=== PATIENT | male | born 1980 | race Caucasian/White ===

== ENCOUNTER 2019-01-17 18:01 | Inpatient (IN) | payer MEDICAID ==
[2019-01-17] MEDS ORDERED: ASPIRIN 81 MG CHEWABLE TABLET PO ONE (18:48)
--- NOTE | 2019-01-17 18:57 | Emergency Department Record ---
History of Present Illness - General Chief Complaint: Chest Pain Stated Complaint: edilma,chest pain Time Seen by Provider: 01/17/19 18:42 Source: Patient Mode of Arrival: Ambulatory Limitations: No limitations - History of Present Illness Initial Comments: pt has been sob x 2wks and has had sharp cp x 3 days. he smokes 3pks a day. he has a nonprod cough. he feels like he is having a problem breathing MD Complaint: Chest pain Onset/Timin -: Week(s) Pain Location: Substernal Pain Radiation: Back Quality: Aching, Sharp Consistency: Constant Improves With: Nothing Worsens With: Inspiration Anginal Symptoms: Dyspnea Other Symptoms: Cough - Related Data Home Medications Medication Instructions Recorded Confirmed Last Taken Buspirone HCl [Buspar] 20 mg PO DAILY 01/17/19 01/17/19 01/17/19 Lamotrigine [Lamictal] 200 mg PO DAILY 01/17/19 01/17/19 01/17/19 Allergies Allergy/AdvReac Type Severity Reaction Status Date / Time amoxicillin Allergy hives Unverified 02/25/18 17:11 amoxicillin trihydrate Allergy hives Unverified 02/25/18 17:11 [From Augmentin] cephalexin Allergy hives Unverified 02/25/18 17:11 clarithromycin [From Biaxin] Allergy Unverified 02/25/18 17:11 potassium clavulanate Allergy hives Unverified 02/25/18 17:11 [From Augmentin] sulfamethoxazole Allergy hives Unverified 02/25/18 17:11 [From Bactrim] trimethoprim [From Bactrim] Allergy hives Unverified 02/25/18 17:11 Travel Screening - Travel/Exposure Within Last 30 Days Have you traveled within the last 30 days?: No - Travel/Exposure Within Last Year Have you traveled outside the [place] in the last year?: No - Additonal Travel Details Have you been exposed to anyone with a communicable illness?: No Review of Systems Reviewed: No additional complaints except as noted below Constitutional: Reports: As per HPI. Denies: Chills, Fever, Malaise, Night sweats, Weakness, Weight change Eyes: Reports: As per HPI. Denies: Eye discharge, Eye pain, Photophobia, Vision change ENT: Reports: As per HPI. Denies: Congestion, Dental pain, Ear pain, Epistaxis, Hearing loss, Throat pain Respiratory: Reports: As per HPI, Cough. Denies: Dyspnea, Hemoptysis, Stridor, Wheezes Cardiovascular: Reports: As per HPI, Chest pain. Denies: Arrhythmia, Dyspnea on exertion, Edema, Murmurs, Orthopnea, Palpitations, Paroxysmal nocturnal dyspnea, Rheumatic Fever, Syncope Endocrine: Reports: As per HPI. Denies: Fatigue, Heat or cold intolerance, Polydipsia, Polyuria Gastrointestinal: Reports: As per HPI. Denies: Abdominal pain, Constipation, Diarrhea, Hematemesis, Hematochezia, Melena, Nausea, Vomiting Genitourinary: Reports: As per HPI. Denies: Dysuria, Frequency, Hematuria, Incontinence, Retention, Testicular pain, Testicular mass, Urgency Musculoskeletal: Reports: As per HPI. Denies: Arthralgia, Back pain, Gout, Joint swelling, Myalgia, Neck pain Skin: Reports: As per HPI. Denies: Bruising, Change in color, Change in hair/nails, Lesions, Pruritus, Rash Neurological: Reports: As per HPI. Denies: Abnormal gait, Confusion, Headache, Numbness, Paresthesias, Seizure, Tingling, Tremors, Vertigo, Weakness Psychiatric: Reports: As per HPI. Denies: Anxiety, Auditory hallucinations, Depression, Homicidal thoughts, Suicidal thoughts, Visual hallucinations Hematological/Lymphatic: Reports: As per HPI. Denies: Anemia, Blood Clots, Easy bleeding, Easy bruising, Swollen glands Past Medical History - SOCIAL HISTORY Smoking Status: Current every day smoker Alcohol Use: Heavy Drug Use: None - RESPIRATORY Hx Respiratory Disorders: Yes Hx Asthma: Yes - CARDIOVASCULAR Hx Cardio Disorders: No - NEURO Hx Neuro Disorders: No - GI Hx GI Disorders: Yes Hx Reflux: Yes - Hx Bladder Problem: Yes (needs to see MD bladder doesn't empty X 1 yr) - ENDOCRINE Hx Endocrine Disorders: No - MUSCULOSKELETAL Hx Musculoskeletal Disorders: No - PSYCH Hx Psych Problems: Yes Hx Depression: Yes - HEMATOLOGY/ONCOLOGY Hx Hematology/Oncology Disorders: No Family Medical History Any Significant Family History?: No Hx Cancer: Mother, Grandparents *Cancer Comment: MOM breast, MGM bladder Hx Diabetes: Mother Hx Heart Disease: Grandparents Physical Exam - General General Appearance: Alert, Oriented x3, Cooperative, Mild distress - Head Head exam: Normal inspection - Eye Eye exam: Normal appearance, PERRL, EOMI Pupils: Normal accommodation - ENT ENT exam: Normal exam, Mucous membranes moist, Normal external ear exam, Normal orophraynx Ear exam: Normal external inspection. negative: External canal tenderness Nasal Exam: Normal inspection. negative: Discharge, Sinus tenderness Mouth exam: Normal external inspection, Tongue normal Teeth exam: Normal inspection. negative: Dental caries Throat exam: Normal inspection. negative: Tonsillar erythema, Tonsillar exudate - Neck Neck exam: Normal inspection, Full ROM. negative: Tenderness - Respiratory Respiratory exam: Normal lung sounds bilaterally, Respiratory distress, Other (tachypnea) - Cardiovascular Cardiovascular Exam: Regular rate, Normal rhythm, Normal heart sounds - GI/Abdominal GI/Abdominal exam: Soft, Normal bowel sounds. negative: Tenderness - Rectal Rectal exam: Deferred - exam: Deferred - Extremities Extremities exam: Normal inspection, Full ROM, Normal capillary refill. negative: Tenderness - Back Back exam: Reports: Normal inspection, Full ROM. Denies: Muscle spasm, Rash noted, Tenderness - Neurological Neurological exam: Alert, CN II-XII intact, Normal gait, Oriented X3 - Psychiatric Psychiatric exam: Normal affect, Normal mood - Skin Skin exam: Dry, Intact, Normal color, Warm Course Vital Signs 01/17/19 01/17/19 18:03 18:18 Temperature 98.2 F Pulse Rate 96 H Respiratory 24 Rate Blood Pressure 180/111 Blood Pressure 157/104 [Right Arm] Pulse Ox 100 - Reevaluation(s) Reevaluation #1: 01/17/19 20:48 pt denies working out . he says he does a lot of lifting at work. etiology of elev cpk is unclear and also of low potassium Medical Decision Making - Lab Data Result diagrams: 01/17/19 18:10 01/17/19 18:10 Disposition Disposition: Admit Clinical Impression: Hypokalemia, Elevated CPK, Alcohol abuse Chest pain Qualifiers: Chest pain type: unspecified Qualified Code(s): R07.9 - Chest pain, unspecified Disposition: Still a Patient at [facility] Decision to Admit: Admit from ER Decision to Admit Date: 01/17/19 Decision to Admit Time: 20:50 Time Discussed w/Accepting Physician: 20:50 Forms: Patient Portal Access Quality - Quality Measures Quality Measures: N/A - Blood Pressure Screening Does Patient Have Any of the Following: No Blood Pressure Classification: Hypertensive Reading Systolic Measurement: 180 Diastolic Measurement: 111 Screening for High Blood Pressure: < First Hypertensive BP, F/U Documented > [[id number]] First Hypertensive Follow-up Interventions: Follow-up with rescreen GT 1 day and LT 4 weeks.
[2019-01-17] MEDS: NITROGLYCERIN 0.4MG SL TABLET #25 BTL SL PRN ×3 (19:06→19:18)
[2019-01-17 19:09] LABS: ABSOLUTE NEUTROPHIL COUNT 6.16; BASO % 0.2 % (0-6); EOS % 0.2 % (0-6); GRAN % 72.2 % (47-80); HEMOGLOBIN 15.9 gm/dl (14.0-18.0); LYMPH % 20.4 % (16-45); MEAN CELL VOLUME 96.2 fl (81-97); MEAN CORPUSCULAR HGB CONC 35.3 g/dl (32-36); MEAN PLATELET VOLUME 9.8 fl (7.4-10.4); PLATELET COUNT 315 K/uL (130-400); RED BLOOD COUNT 4.68 M/uL (4.40-5.70); RED CELL DISTRIBUTION WIDTH 12.2 % (11.5-14.5); WHITE BLOOD COUNT W/O DIFF 8.5 K/uL (4.2-12.2)
[2019-01-17 19:20] LABS: BLOOD UREA NITROGEN 19 mg/dL (6-20); CREATININE 0.9 mg/dL (0.7-1.2); EST GLOMERULAR FILTRATION RATE > 60 mL/min
[2019-01-17 19:21] LABS: TOTAL PROTEIN 7.4 g/dL (6.6-8.7)
[2019-01-17 19:23] LABS: GLUCOSE,RANDOM 96 mg/dL (74-109)
[2019-01-17 19:25] LABS: ALT/SGPT 24 U/L (<41); AST/SGOT 39 U/L (10.0-50.0)
[2019-01-17] MEDS ORDERED: POTASSIUM CHLORIDE 20 MEQ TABLET PO ONE (19:25)
[2019-01-17] MEDS ORDERED: SOD CHLOR 0.9% WITH KCL 40MEQ 40 MEQ/1,000 ML IV.SOLN IV ONE (19:25)
[2019-01-17 19:26] LABS: ALB/GLOB RATIO 1.7 (1.1-1.8); ALBUMIN 4.7 g/dL (4.0-5.0); ALKALINE PHOSPHATASE 72 U/L (40-129); CREATINE PHOSPHOKINASE 939 U/L (39-308)
[2019-01-17 19:28] LABS: CKMB 6.2 ng/mL (<6.73)
[2019-01-17 19:31] LABS: CKMB RELATIVE INDEX 0.66 % (0-4)
[2019-01-17] MEDS ORDERED: LORAZEPAM 2 MG/ML VIAL IV ONE ×2 (20:39→21:24)
[2019-01-17] MEDS ORDERED: KETOROLAC 30 MG/ML VIAL IVP ONE (20:39)
[2019-01-17 21:01] LABS: URINE APPEARANCE CLEAR; URINE BILIRUBIN NEGATIVE (NEGATIVE); URINE BLOOD NEGATIVE (NEGATIVE); URINE COLOR YELLOW; URINE GLUCOSE (UA) NEGATIVE (NEGATIVE); URINE KETONE TRACE (NEGATIVE); URINE LEUKOCYTE ESTERASE NEGATIVE (NEGATIVE); URINE NITRITE NEGATIVE (NEGATIVE); URINE PROTEIN NEGATIVE (NEGATIVE); URINE UROBILINOGEN 0.2 E.U./dL (0.20 - 1.00)
[2019-01-17] MEDS ORDERED: HYDROCODONE/APAP 5/325MG TABLET PO ONE (21:01)
[2019-01-17] MEDS ORDERED: HYDROCODONE/APAP 7.5/325MG TABLET PO ONE (21:06)
[2019-01-17] MEDS ORDERED: NITROGLYCERIN 0.4MG SL TABLET #25 BTL SL PRN (22:01)
[2019-01-17] MEDS ORDERED: PANTOPRAZOLE SODIUM 40 MG TABLET PO SCH (22:01)
[2019-01-17] MEDS ORDERED: IBUPROFEN 200 MG PO SCH (22:01)
[2019-01-17] MEDS: DICYCLOMINE HCL 10 MG CAPSULE PO SCH (22:30)
[2019-01-17] MEDS: NICOTINE 21 MG/24 HOUR PATCH TD SCH (22:31)
[2019-01-17] MEDS: CHLORDIAZEPOXIDE 25 MG CAPSULE PO SCH (22:31)
[2019-01-17] MEDS: HYDROCODONE/APAP 7.5/325MG TABLET PO SCH (22:58)
[2019-01-17] MEDS ORDERED: IBUPROFEN 200 MG TABLET PO SCH (23:00)
[2019-01-17] MEDS: IBUPROFEN 200 MG TABLET PO SCH (23:01)
[2019-01-18] MEDS: LORAZEPAM 2 MG/ML VIAL IV PRN ×5 (00:53→23:09)
[2019-01-18] MEDS: 0.9 % SODIUM CHLORIDE 1000ML 1,000 ML IV PRN ×2 (00:55→10:35)
[2019-01-18] MEDS: HYDROCODONE/APAP 7.5/325MG TABLET PO SCH (04:11)
[2019-01-18] MEDS: IBUPROFEN 200 MG TABLET PO SCH ×5 (04:13→23:08)
[2019-01-18 04:25] LABS: BLOOD UREA NITROGEN 17 mg/dL (6-20); CREATINE PHOSPHOKINASE 489 U/L (39-308); CREATININE 0.8 mg/dL (0.7-1.2); EST GLOMERULAR FILTRATION RATE > 60 mL/min; GLUCOSE,RANDOM 89 mg/dL (74-109)
[2019-01-18 04:27] LABS: CKMB 2.9 ng/mL (<6.73)
[2019-01-18] MEDS ORDERED: HYDROCODONE/APAP 7.5/325MG TABLET PO PRN (09:15)
[2019-01-18] MEDS ORDERED: ASPIRIN 325 MG TAB ENTERIC-COATED PO SCH (10:00)
[2019-01-18] MEDS: PANTOPRAZOLE SODIUM 40 MG TABLET PO SCH (10:09)
[2019-01-18] MEDS: SUCRALFATE 1 G/10 ML UD PO SCH ×4 (10:09→21:59)
[2019-01-18] MEDS: DICYCLOMINE HCL 10 MG CAPSULE PO SCH ×3 (10:09→21:59)
[2019-01-18] MEDS: ONDANSETRON 4 MG ODT TABLET SL SCH (10:09)
[2019-01-18] MEDS: BUSPIRONE 5 MG TABLET PO SCH ×3 (10:12→21:59)
[2019-01-18] MEDS: CHLORDIAZEPOXIDE 25 MG CAPSULE PO SCH ×3 (10:14→21:59)
[2019-01-18 11:39] LABS: LIPASE 25 U/L (13-60)
[2019-01-18 11:41] LABS: AMYLASE 32 U/L (28-100)
--- NOTE | 2019-01-18 12:05 | History & Physical ---
History of Present Illness - Date of Service Date of Service for History & Physical: 01/18/19 - History of Present Illness Admitting Diagnosis: hypokalemia, elev cpk, chest pain, alcohol History of Present Illness: 38 year-old male presenting to the emergency department with edilma for x 2wks and has had sharp sternal cp that radiates around to his back x 3 days. Pt reports having a nonproductive cough throughout the day, with sputum production in the am only. pt smokes 3pks/ day. Pt states that he has seen GI in the past for lower bilateral abd pain and had a negative EGD 1 year ago. Pt reports weight loss over the past year of 80 lbs with no change in diet aside from switching from drinking beer to liquor and not drinking pop. PMH includes asthma, GERD, Anxiety, Depression, recent bereavement of father, chronic neck pain, including reports of DJD and bulging disc in c2. Taking [place] for chronic pain. In the ED: Vitals were BP of 180/111, HR 96, SpO2 100, RR 24, Temp 98.2. Recheck BP was 157/104. D. dimer <0.19, K 2.8, mag 1.6, anion gap 17, CPK 939, Trop negative, BNP 102.4, amylase 32, lipase 25. Pt states he has not had any unusual physical activity to elevate CPK. UA unremarkable aside from trace ketones. Chest XRAY and EKG WNL. Pt was admitted for alcohol withdrawal, Chest pain, and hypokalemia. 01/18/19: Vitals unremarkable aside from BP being 151/97. K increased to 3.4, Anion gap decreased to 9.0, CPK decreased to 489 with hydration, Troponin remains negative. Pt still reports sharp sternal chest pain that radiated around and through his back, with no relief from norco. Due to physical exam findings and patient history of alcoholism and smoking history, will order abdominal ultrasound to rule out gall bladder disease and AAA. Continue librium and CIWA scale per protocol. PCP: Dr. Dawn Travel Screening - Travel/Exposure Within Last 30 Days Have you traveled within the last 30 days?: No - Travel/Exposure Within Last Year Have you traveled outside the [place] in the last year?: No - Additonal Travel Details Have you been exposed to anyone with a communicable illness?: No Review of Systems Constitutional: Reports: As per HPI. Denies: Chills, Fever, Malaise, Night sweats, Weakness, Weight change Eyes: Reports: As per HPI. Denies: Eye discharge, Eye pain, Photophobia, Vision change ENT: Reports: As per HPI. Denies: Congestion, Dental pain, Ear pain, Epistaxis, Hearing loss, Throat pain Respiratory: Reports: As per HPI, Cough. Denies: Dyspnea, Hemoptysis, Stridor, Wheezes Cardiovascular: Reports: As per HPI, Chest pain. Denies: Arrhythmia, Dyspnea on exertion, Edema, Murmurs, Orthopnea, Palpitations, Paroxysmal nocturnal dyspnea, Rheumatic Fever, Syncope Endocrine: Reports: As per HPI. Denies: Fatigue, Heat or cold intolerance, Polydipsia, Polyuria Gastrointestinal: Reports: As per HPI. Denies: Abdominal pain, Constipation, Diarrhea, Hematemesis, Hematochezia, Melena, Nausea, Vomiting Genitourinary: Reports: As per HPI. Denies: Dysuria, Frequency, Hematuria, Incontinence, Retention, Testicular pain, Testicular mass, Urgency Musculoskeletal: Reports: As per HPI. Denies: Arthralgia, Back pain, Gout, Joint swelling, Myalgia, Neck pain Skin: Reports: As per HPI. Denies: Bruising, Change in color, Change in hair/nails, Lesions, Pruritus, Rash Neurological: Reports: As per HPI. Denies: Abnormal gait, Confusion, Headache, Numbness, Paresthesias, Seizure, Tingling, Tremors, Vertigo, Weakness Psychiatric: Reports: As per HPI. Denies: Anxiety, Auditory hallucinations, Depression, Homicidal thoughts, Suicidal thoughts, Visual hallucinations Hematological/Lymphatic: Reports: As per HPI. Denies: Anemia, Blood Clots, Easy bleeding, Easy bruising, Swollen glands Past Medical History - SOCIAL HISTORY Smoking Status: Current every day smoker Alcohol Use: Heavy Alcohol Use Comment: 5th a day Drug Use: None - RESPIRATORY Hx Respiratory Disorders: Yes Hx Asthma: Yes - CARDIOVASCULAR Hx Cardio Disorders: No - NEURO Hx Neuro Disorders: No - GI Hx GI Disorders: Yes Hx Reflux: Yes - Hx Bladder Problem: Yes (needs to see MD bladder doesn't empty X 1 yr) - ENDOCRINE Hx Endocrine Disorders: No - MUSCULOSKELETAL Hx Musculoskeletal Disorders: No - PSYCH Hx Psych Problems: Yes Hx Depression: Yes - HEMATOLOGY/ONCOLOGY Hx Hematology/Oncology Disorders: No Family Medical History Any Significant Family History?: No Hx Cancer: Mother, Grandparents *Cancer Comment: MOM breast, MGM bladder Hx Diabetes: Mother Hx Heart Disease: Grandparents H&P Meds/Allergies - Allergies Allergies: Allergies Allergy/AdvReac Type Severity Reaction Status Date / Time amoxicillin Allergy hives Unverified 02/25/18 17:11 amoxicillin trihydrate Allergy hives Unverified 02/25/18 17:11 [From Augmentin] cephalexin Allergy hives Unverified 02/25/18 17:11 clarithromycin [From Biaxin] Allergy Unverified 02/25/18 17:11 potassium clavulanate Allergy hives Unverified 02/25/18 17:11 [From Augmentin] sulfamethoxazole Allergy hives Unverified 02/25/18 17:11 [From Bactrim] trimethoprim [From Bactrim] Allergy hives Unverified 02/25/18 17:11 - Home Medications Home Medications Medication Instructions Recorded Confirmed Last Taken Buspirone HCl [Buspar] 20 mg PO TID 01/17/19 01/18/19 01/17/19 Lamotrigine [Lamictal] 200 mg PO QHS 01/17/19 01/18/19 01/17/19 - Active Medications Active Medications: Current Medications Hydrocodone Bitart/Acetaminophen ([place] 7.5mg/325mg) 1 each PO Q6H PRN PRN Reason: PAIN - MOD TO SEVERE (5-10) Aspirin (Ecotrin (Ec)) 325 mg PO DAILY [facility] Last Admin: 01/18/19 10:09 Dose: 325 mg Documented by: Buspirone HCl (Buspar) 20 mg PO TID [facility] Last Admin: 01/18/19 10:12 Dose: 20 mg Documented by: Chlordiazepoxide HCl (Librium) 25 mg PO TID [facility] Last Admin: 01/18/19 10:14 Dose: 25 mg Documented by: Dicyclomine HCl (Bentyl) 20 mg PO TID [facility] Last Admin: 01/18/19 10:09 Dose: 20 mg Documented by: Sodium Chloride () 1,000 mls @ 200 mls/hr IV .Q5H PRN PRN Reason: LARGE VOLUME IV Last Admin: 01/18/19 10:35 Dose: 200 mls/hr Documented by: Ibuprofen (Motrin 200mg) 200 mg PO Q6H [facility] Last Admin: 01/18/19 04:13 Dose: 200 mg Documented by: Lamotrigine (Lamictal) 200 mg PO QHS [facility] Lorazepam (Ativan) 1 mg IV Q4HR PRN PRN Reason: ANXIETY Last Admin: 01/18/19 05:03 Dose: 1 mg Documented by: Nicotine (Nicotine 21mg) 1 patch TD Q24H [facility] Last Admin: 01/17/19 22:31 Dose: 1 patch Documented by: Nitroglycerin (Nitrostat 0.4mg) 0.4 mg SL Q5MIN PRN PRN Reason: CHEST PAIN Ondansetron HCl (Zofran Odt) 4 mg SL DAILY [facility] Last Admin: 01/18/19 10:09 Dose: 4 mg Documented by: Pantoprazole Sodium (Protonix) 40 mg PO DAILY [facility] Last Admin: 01/18/19 10:09 Dose: 40 mg Documented by: Sucralfate (Carafate) 1 g PO QID [facility] Last Admin: 01/18/19 10:09 Dose: 1 g Documented by: Physical Exam - Vital Signs Vital Signs: Vital Signs - Last 24 Hrs Temp Pulse Pulse Resp BP BP Pulse Ox 01/18/19 09:48 18 98 01/18/19 07:29 98.6 F 73 16 151/97 97 01/18/19 04:01 97.7 F 68 22 153/98 100 01/18/19 00:01 97.7 F 63 20 152/101 99 01/17/19 23:41 80 18 01/17/19 22:01 97.8 F 70 20 146/94 98 01/17/19 21:11 73 20 151/103 99 01/17/19 19:16 81 141/90 94 L 01/17/19 19:11 82 20 143/88 97 01/17/19 19:05 81 20 155/99 97 01/17/19 18:18 157/104 01/17/19 18:03 98.2 F 96 H 24 180/111 100 - General General Appearance: Alert, Oriented x3, Cooperative, Mild distress Limitations: No limitations - Head Head exam: Normal inspection - Eye Eye exam: Normal appearance, PERRL, EOMI Pupils: Normal accommodation - ENT ENT exam: Normal exam, Mucous membranes moist, Normal external ear exam, Normal orophraynx Ear exam: Normal external inspection. negative: External canal tenderness Nasal Exam: Normal inspection. negative: Discharge, Sinus tenderness Mouth exam: Normal external inspection, Tongue normal Teeth exam: Normal inspection. negative: Dental caries Throat exam: Normal inspection. negative: Tonsillar erythema, Tonsillar exudate - Neck Neck exam: Normal inspection, Full ROM. negative: Tenderness - Respiratory Respiratory exam: Decreased breath sounds (prior to coughing and deep breathing) - Cardiovascular Cardiovascular Exam: Regular rate, Normal rhythm, Normal heart sounds Peripheral Pulses: 2+: Radial (R), Radial (L) - GI/Abdominal GI/Abdominal exam: Soft, Normal bowel sounds, Other (upper and mid left quadrant referred heart sounds). negative: Tenderness - Rectal Rectal exam: Deferred - exam: Deferred - Extremities Extremities exam: Normal inspection, Full ROM, Normal capillary refill. negative: Tenderness - Back Back exam: Reports: Normal inspection, Full ROM. Denies: Muscle spasm, Rash noted, Tenderness - Neurological Neurological exam: Alert, CN II-XII intact, Normal gait, Oriented X3 - Psychiatric Psychiatric exam: Normal affect, Normal mood - Skin Skin exam: Dry, Intact, Normal color, Warm Results - Labs Result Diagrams: 01/17/19 18:10 01/18/19 03:58 Labs Last 24 Hours: Laboratory Results - last 24 hr 01/17/19 01/17/19 01/17/19 18:10 18:10 18:10 WBC 8.5 RBC 4.68 Hgb 15.9 Hct 45.0 MCV 96.2 MCH 34.0 H MCHC 35.3 RDW 12.2 Plt Count 315 MPV 9.8 Gran % 72.2 Lymphocytes % 20.4 Monocytes % 7.0 Eosinophils % 0.2 Basophils % 0.2 Absolute Neutrophils 6.16 D-Dimer < 0.19 Sodium 141 Potassium 2.8 L* Chloride 102 Carbon Dioxide 22.0 Anion Gap 17.0 H BUN 19 Creatinine 0.9 Estimated GFR > 60 Random Glucose 96 Calcium 10.1 H Magnesium Total Bilirubin 0.90 AST 39 ALT 24 Alkaline Phosphatase 72 Creatine Kinase 939 H CK-MB (CK-2) 6.2 CK-MB (CK-2) Rel Index 0.66 Troponin T < 0.010 NT-Pro-B Natriuret Pep 102.40 Total Protein 7.4 Albumin 4.7 Globulin 2.7 Albumin/Globulin Ratio 1.7 Amylase Lipase Urine Color Urine Appearance Urine pH Ur Specific [place] Urine Protein Urine Glucose (UA) Urine Ketones Urine Blood Urine Nitrite Urine Bilirubin Urine Urobilinogen Ur Leukocyte Esterase Ethyl Alcohol 01/17/19 01/17/19 01/17/19 18:10 18:10 21:01 WBC RBC Hgb Hct MCV MCH MCHC RDW Plt Count MPV Gran % Lymphocytes % Monocytes % Eosinophils % Basophils % Absolute Neutrophils D-Dimer Sodium Potassium Chloride Carbon Dioxide Anion Gap BUN Creatinine Estimated GFR Random Glucose Calcium Magnesium 1.6 Total Bilirubin AST ALT Alkaline Phosphatase Creatine Kinase Cancelled CK-MB (CK-2) CK-MB (CK-2) Rel Index Troponin T NT-Pro-B Natriuret Pep Total Protein Albumin Globulin Albumin/Globulin Ratio Amylase Lipase Urine Color Yellow Urine Appearance Clear Urine pH 7.0 Ur Specific [place] 1.010 Urine Protein Negative Urine Glucose (UA) Negative Urine Ketones Trace H Urine Blood Negative Urine Nitrite Negative Urine Bilirubin Negative Urine Urobilinogen 0.2 Ur Leukocyte Esterase Negative Ethyl Alcohol 0.000 01/18/19 01/18/19 01/18/19 03:58 04:00 06:00 WBC RBC Hgb Hct MCV MCH MCHC RDW Plt Count MPV Gran % Lymphocytes % Monocytes % Eosinophils % Basophils % Absolute Neutrophils D-Dimer Sodium 141 Cancelled Potassium 3.4 Cancelled Chloride 109 H Cancelled Carbon Dioxide 23.0 Cancelled Anion Gap 9.0 Cancelled BUN 17 Cancelled Creatinine 0.8 Cancelled Estimated GFR > 60 Cancelled Random Glucose 89 Cancelled Calcium 8.6 Cancelled Magnesium Total Bilirubin AST ALT Alkaline Phosphatase Creatine Kinase 489 H Cancelled CK-MB (CK-2) 2.9 Cancelled CK-MB (CK-2) Rel Index Troponin T < 0.010 NT-Pro-B Natriuret Pep Total Protein Albumin Globulin Albumin/Globulin Ratio Amylase Lipase Urine Color Urine Appearance Urine pH Ur Specific [place] Urine Protein Urine Glucose (UA) Urine Ketones Urine Blood Urine Nitrite Urine Bilirubin Urine Urobilinogen Ur Leukocyte Esterase Ethyl Alcohol 01/18/19 Unknown WBC RBC Hgb Hct MCV MCH MCHC RDW Plt Count MPV Gran % Lymphocytes % Monocytes % Eosinophils % Basophils % Absolute Neutrophils D-Dimer Sodium Potassium Chloride Carbon Dioxide Anion Gap BUN Creatinine Estimated GFR Random Glucose Calcium Magnesium Total Bilirubin AST ALT Alkaline Phosphatase Creatine Kinase CK-MB (CK-2) CK-MB (CK-2) Rel Index Troponin T NT-Pro-B Natriuret Pep Total Protein Albumin Globulin Albumin/Globulin Ratio Amylase 32 Lipase 25 Urine Color Urine Appearance Urine pH Ur Specific [place] Urine Protein Urine Glucose (UA) Urine Ketones Urine Blood Urine Nitrite Urine Bilirubin Urine Urobilinogen Ur Leukocyte Esterase Ethyl Alcohol - Imaging and Cardiology Chest x-ray Status: Report reviewed, Image reviewed Additional Comments: No acute findings per radiology report. VTE H&P Assessment - Risk for VTE Risk for VTE: Yes Risk Level: Very Low Risk Assessment Date: 01/18/19 Risk Assessment Time: 12:09 VTE Orders Placed or Will Be Placed: No VTE Reason for No Prophylaxis: Not Indicated (ruling out AAA prior to initiating DVT prophylaxis) Plan - Detailed Diagnosis and Plan (1) Chest pain Current Visit: Yes Status: Acute Qualifiers: Chest pain type: unspecified Qualified Code(s): R07.9 - Chest pain, unspecified Base Code: R07.9 - CHEST PAIN, UNSPECIFIED Comment: 01/18/19: -EKG normal, troponins negative, VSS, Normal sinus rhythm on telemetry -Will rule out gallbladder disease with abdomen ultrasound -displaced heart sounds including left upper and mid quadrant of abdomen. Will rule out AAA with abdomen ultrasound. (2) Alcohol abuse Current Visit: Yes Status: Acute Base Code: F10.10 - ALCOHOL ABUSE, UNCOMPLICATED Comment: 01/18/19: -ETOH level upon arrival was 0.00, continue CIWA scale and librium TID. (3) Hypokalemia Current Visit: Yes Status: Acute Base Code: E87.6 - HYPOKALEMIA Comment: 01/18/19: -In the ED K was 2.8, current K is 3.4 -Will continue to monitor (4) Elevated CPK Current Visit: Yes Status: Acute Base Code: R74.8 - ABNORMAL LEVELS OF OTHER SERUM ENZYMES Comment: 01/18/19: -In the ED CPK 939, current CPK is 489. -Will continue to monitor -Continuing NS at 100mL/hr (5) Unintentional weight loss Current Visit: Yes Status: Acute Base Code: R63.4 - ABNORMAL WEIGHT LOSS Comment: 01/18/19: -Pt reports 80 lbs weight loss, 15 lbs were within the past 3 months and the on ly lifestyle changes including switching from drinking beer to liquor and eliminating soda. (6) At low risk for deep venous thrombosis Current Visit: Yes Status: Acute Base Code: Z91.89 - OTH PERSONAL RISK FACTORS, NOT ELSEWHERE CLASSIFIED Comment: 01/18/19: -Pt screens low risk, will hold prophylaxis until Abdominal US rules out AAA. (7) Full code status Current Visit: Yes Status: Acute Base Code: Z78.9 - OTHER SPECIFIED HEALTH STATUS Comment: 01/18/19: -Pt full code.
--- NOTE | 2019-01-18 12:54 | RADIOLOGY REPORT ---
EXAM: CHEST, TWO VIEWS HISTORY: CHEST PAIN, DIFFICULTY BREATHING. TECHNIQUE: Two views of the chest were obtained. Comparison: Chest radiograph 05/09/13. FINDINGS: The cardiac silhouette is within normal size limits. No focal pulmonary consolidation. No pleural effusion. No pneumothorax. IMPRESSION: NO ACUTE LUNG FINDINGS. JOB NUMBER: [id number] MTDD
[2019-01-18] MEDS: HYDROCODONE/APAP 10/325 TABLET PO ONE ×2 (19:11→19:15)
[2019-01-18] MEDS: NICOTINE 21 MG/24 HOUR PATCH TD SCH ×3 (19:14→23:01)
[2019-01-18] MEDS: LAMOTRIGINE 100 MG TABLET PO SCH (21:59)
[2019-01-19] MEDS: HYDROCODONE/APAP 7.5/325MG TABLET PO SCH ×4 (05:10→22:11)
[2019-01-19] MEDS: IBUPROFEN 200 MG TABLET PO SCH (05:11)
[2019-01-19] MEDS: LORAZEPAM 2 MG/ML VIAL IV PRN ×4 (05:15→22:15)
[2019-01-19 07:07] LABS: BLOOD UREA NITROGEN 7 mg/dL (6-20); CREATININE 0.8 mg/dL (0.7-1.2); EST GLOMERULAR FILTRATION RATE > 60 mL/min; GLUCOSE,RANDOM 97 mg/dL (74-109)
--- NOTE | 2019-01-19 07:48 | ULTRASOUND REPORT ---
EXAM: ULTRASOUND OF THE ABDOMEN COMPLETE HISTORY: CHEST PAIN FOR THREE WEEKS WITH DIFFICULTY IN BREATHING. VOMITING AFTER COUGHING. TECHNIQUE: Routine ultrasound examination of the abdomen was performed. Comparison: Abdomen ultrasound dated 12/29/16. FINDINGS: The examination is limited as the patient coughed throughout the examination. The pancreatic tail is obscured by overlying bowel gas. The remainder of the pancreas is well visualized and normal in appearance. The abdominal aorta is without aneurysmal dilatation and the intrahepatic IVC is patent. There is a rounded area of increased echogenicity within the posterior aspect of the lateral segment of the left liver lobe measuring 2.0 x 2.6 x 3.1 cm. There is no posterior shadowing nor enhanced through transmission. This was not visualized on the prior examination. The etiology is uncertain. This could relate to focal steatosis, hemangioma or neoplasm. The liver is otherwise normal in appearance. No intra nor extrahepatic biliary ductal dilatation with the common hepatic duct measuring 6 mm. The gallbladder is normal in appearance and there is a negative sonographic Glass's sign. The spleen is not enlarged and is homogeneous in echotexture. Screening evaluation of the kidneys does not demonstrate hydronephrosis nor mass with the right kidney measuring 11.7 cm in length and the left kidney measuring 11.8 cm in length. IMPRESSION: 1. NO EVIDENCE OF AN ACUTE INTRAABDOMINAL PROCESS. 2. ROUNDED ECHOGENIC AREA WITHIN THE POSTERIOR SUPERIOR ASPECT OF THE LEFT LIVER LOBE MEASURING 2.6 X 3.1 X 2.0 CM. THIS WAS NOT VISUALIZED ON THE PRIOR EXAMINATION. THIS MAY REPRESENT FOCAL HEPATIC STEATOSIS. DIFFUSE HEPATIC STEATOSIS WAS PRESENT ON THE PRIOR EXAMINATION. FURTHER EVALUATION WITH PRE AND POST CONTRAST ADMINISTRATION MRI OR CT EXAMINATION IS RECOMMENDED. 3. NONVISUALIZATION OF THE PANCREATIC TAIL DUE TO OVERLYING BOWEL GAS. JOB NUMBER: [id number] [facility]
--- NOTE | 2019-01-19 08:09 | CT SCAN REPORT ---
EXAM: PRE AND POST CONTRAST CT OF THE ABDOMEN HISTORY: ABDOMEN ULTRASOUND EARLIER TODAY DESCRIBING A 3 CM ECHOGENIC MASS POSTERIORLY LEFT LOBE OF THE LIVER. CT REQUESTED FOR FURTHER EVALUATION. TECHNIQUE: Axial CT scan of the abdomen was performed initially prior to IV contrast. The patient was then injected intravenously with IV contrast and a multiphase post contrast study was performed. Please see the medical record for IV contrast specifics. No oral contrast utilized. Comparison: No prior CT with which to compare. Comparison is made with the abdomen ultrasound performed earlier today. FINDINGS: On the precontrast images, no calcified gallstones are seen within the gallbladder. No intrarenal calculi identified. The slightly echogenic mass evident posteriorly in the left lobe of the liver on the recent ultrasound is difficult to confidently identify on the precontrast images although when correlated with the post contrast study, it is faintly recognized posteriorly in the left lobe measuring about 3 cm x 2.4 cm in transverse and AP diameters. This has a precontrast CT density of 23 whereas the liver elsewhere has CT density of approximately 46-53 CT units on the precontrast images. No other hepatic mass seen on the precontrast images. On the multiphase post contrast study, the left lobe liver mass is very subtle on the initial arterial phase images. On the portal venous phase the mass is probably best demonstrated, measuring about 3.3 cm in transverse x 2.7 cm in AP diameter x 1.8 cm in craniocaudal dimension. This has a CT density of approximately 31 CT units whereas the enhanced liver parenchyma has a density of approximately 88-93 CT units. On the delay images the mass is less conspicuous as its density has increased to approximately 48 CT units and the liver parenchyma elsewhere has decreased in density to about 68-72 CT units. This mass does not have the classic enhancement pattern of a hemangioma beginning in the periphery and filling in centrally. Additional delayed images were not obtained to determine if the mass becomes completely isodense with the liver elsewhere, and the almost isodense appearance on the noncontrast CT is also somewhat atypical of hemangioma. This was certainly not a cyst on the ultrasound and may just be a somewhat atypical hemangioma, but another form of hepatic mass cannot be excluded with this pattern. Follow-up MRI is suggested for further evaluation. No additional hepatic mass is identified on the post contrast sequences as well. No definite splenic, adrenal, pancreatic, or renal mass identified and no hydronephrosis evident. Limited evaluation of the bowel without oral contrast. No retroperitoneal adenopathy evident. Very small umbilical hernia containing adipose tissue, but no bowel. No free intraperitoneal air or free intraperitoneal fluid evident. Mild spurring in the lower thoracic spine. IMPRESSION: 1. SINGLE MASS POSTERIORLY IN THE LATERAL SEGMENT OF THE LEFT LOBE OF THE LIVER CORRESPONDING TO THAT SEEN ON THE ULTRASOUND. THIS DOES NOT HAVE THE CLASSIC ENHANCEMENT PATTERN OF HEMANGIOMA, BUT MAY STILL BE A SOMEWHAT ATYPICAL HEMANGIOMA. FOLLOW-UP MRI OF THE LIVER SUGGESTED FOR FURTHER EVALUATION. 2. VERY SMALL UMBILICAL HERNIA CONTAINING ADIPOSE TISSUE, BUT NO BOWEL. 3. THE REMAINDER OF THE CT OF THE ABDOMEN APPEARS ESSENTIALLY NEGATIVE DESCRIBED ABOVE. MINOR SPURRING LOWER THORACIC SPINE. JOB NUMBER: [id number] [facility]
[2019-01-19] MEDS ORDERED: KETOROLAC 30 MG/ML VIAL IVP ONE (10:03)
[2019-01-19] MEDS ORDERED: METOCLOPRAMIDE HCL 10 MG/2 ML VIAL IVP ONE (10:03)
[2019-01-19] MEDS ORDERED: DIPHENHYDRAMINE HCL 50 MG/ML VIAL IVP ONE (10:03)
--- NOTE | 2019-01-19 10:11 | Physician Progress Note ---
Subjective - Date Date of Physician Progress Note: 01/19/19 - Subjective Subjective Comment: 01/19/19: Abdominal US on 01/19 identified an echogenic area of liver, recommended CT w/wo contrast. CT done and consistent- 2.4 x 3cm mass (may be atypical hemangioma, vs. neoplasm)- recommended MRI for further evaluation. Will plan further eval OP with pt's PCP. Changed admission from OBS to inpatient. GI consult ordered (for 01/20) to r/o ulcer. Pt c/o of persistent sternal "s tabbing" pain, hx of heavy ETOH use and ibuprofen use. Current c/o headache- ordered IV toradol 30mg, 10mg reglan, and 25mg benadryl. Will plan NPO at midnight for GI consult, poss scope. Objective - Vital Signs Vital Signs: Vital Signs - Last 24 Hrs Temp Pulse Resp BP BP Pulse Ox 01/19/19 07:35 98.0 F 77 16 154/105 147/102 97 01/19/19 05:00 97.6 F 70 22 162/107 98 01/18/19 21:00 16 01/18/19 20:00 98.2 F 82 22 148/86 98 01/18/19 16:00 98.4 F 78 18 159/87 98 01/18/19 12:00 97.4 F L 81 18 151/97 96 - General General Appearance: Alert, Oriented x3, Cooperative, Mild distress Limitations: No limitations - Head Head exam: Normal inspection - Eye Eye exam: Normal appearance, PERRL, EOMI Pupils: Normal accommodation - ENT ENT exam: Normal exam, Mucous membranes moist, Normal external ear exam, Normal orophraynx Ear exam: Normal external inspection. negative: External canal tenderness Nasal Exam: Normal inspection. negative: Discharge, Sinus tenderness Mouth exam: Normal external inspection, Tongue normal Teeth exam: Normal inspection. negative: Dental caries Throat exam: Normal inspection. negative: Tonsillar erythema, Tonsillar exudate - Neck Neck exam: Normal inspection, Full ROM. negative: Tenderness - Respiratory Respiratory exam: Decreased breath sounds (prior to coughing and deep breathing) - Cardiovascular Cardiovascular Exam: Regular rate, Normal rhythm, Normal heart sounds Peripheral Pulses: 2+: Radial (R), Radial (L) - GI/Abdominal GI/Abdominal exam: Soft, Normal bowel sounds, Other (upper and mid left quadrant referred heart sounds). negative: Tenderness - Rectal Rectal exam: Deferred - exam: Deferred - Extremities Extremities exam: Normal inspection, Full ROM, Normal capillary refill. negative: Tenderness - Back Back exam: Reports: Normal inspection, Full ROM. Denies: Muscle spasm, Rash noted, Tenderness - Neurological Neurological exam: Alert, CN II-XII intact, Normal gait, Oriented X3 - Psychiatric Psychiatric exam: Normal affect, Normal mood - Skin Skin exam: Dry, Intact, Normal color, Warm Assessment and Plan - Inpatient Certification Inpatient Certification: 01/19/19 10:05 Admission changed to inpatient. Pt. requires GI consult, pain management, management of ETOH withdrawal. Estimated length of stay: 48-96 hours. - Assessment and Plan (1) Chest pain Current Visit: Yes Status: Acute Qualifiers: Chest pain type: unspecified Qualified Code(s): R07.9 - Chest pain, unspecified Base Code: R07.9 - CHEST PAIN, UNSPECIFIED Narrative Support Text: Sternal chest pain, constant Comment: 01/19/19: -EKG normal, troponins negative, VSS, Normal sinus rhythm on telemetry -Sternal constant "stabbing" chest pain per pt- will consult GI to r/o ulcer (hx heavy ETOH abuse and ibuprofen use) -Continue tele, protonix and carafate (2) Alcohol abuse Current Visit: Yes Status: Acute Base Code: F10.10 - ALCOHOL ABUSE, UNCOMPLICATED Comment: 01/19/19: -ETOH level upon arrival was 0.00, continue CIWA scale and librium TID. (3) Hypokalemia Current Visit: Yes Status: Acute Base Code: E87.6 - HYPOKALEMIA Comment: 01/19/19: -In the ED K was 2.8, current K is 3.2 -Start 20mEq KCL daily (4) Elevated CPK Current Visit: Yes Status: Acute Base Code: R74.8 - ABNORMAL LEVELS OF OTHER SERUM ENZYMES Comment: 01/19/19: -Resolved (5) Unintentional weight loss Current Visit: Yes Status: Acute Base Code: R63.4 - ABNORMAL WEIGHT LOSS Comment: 01/18/19: -Pt reports 80 lbs weight loss, 15 lbs were within the past 3 months and the only lifestyle changes including switching from drinking beer to liquor and eliminating soda. (6) COPD (chronic obstructive pulmonary disease) Current Visit: Yes Status: Acute Base Code: J44.9 - CHRONIC OBSTRUCTIVE PULMONARY DISEASE, UNSPECIFIED Comment: 01/23/19: -Daily smoker, 3ppd -c/o coughing up mucous every morning until vomiting -Will start Breo today -Encouraged coughing and deep breathing once every 10 minutes (7) Liver mass, left lobe Current Visit: Yes Status: Acute Base Code: R16.0 - HEPATOMEGALY, NOT ELSEWHERE CLASSIFIED Comment: 01/19/19: -2.4 x 3cm mass identified in left lobe of liver on abd US and CT, recommended MRI -Plan for further workup outpatient with PCP (social work contacting PCP to start order for MRI and referral) (8) At low risk for deep venous thrombosis Current Visit: Yes Status: Acute Base Code: Z91.89 - OTH PERSONAL RISK FACTORS, NOT ELSEWHERE CLASSIFIED Comment: 01/19/19: -Pt screens low risk, will hold prophylaxis until r/o GI ulcer (9) Full code status Current Visit: Yes Status: Acute Base Code: Z78.9 - OTHER SPECIFIED HEALTH STATUS Comment: 01/19/19: -Pt full code. Results - Labs Result Diagrams: 01/17/19 18:10 01/19/19 06:19 Labs Last 24 Hours: Laboratory Results - last 24 hr 01/18/19 01/18/19 01/18/19 12:14 12:14 16:14 Sodium Potassium Chloride Carbon Dioxide Anion Gap BUN Creatinine Estimated GFR POC Glucose 88 Random Glucose Calcium CK-MB (CK-2) 2.2 Troponin T < 0.010 Amylase Lipase 01/18/19 01/18/19 01/18/19 20:00 20:00 Unknown Sodium Potassium Chloride Carbon Dioxide Anion Gap BUN Creatinine Estimated GFR POC Glucose Random Glucose Calcium CK-MB (CK-2) Cancelled Troponin T Cancelled Amylase 32 Lipase 25 01/19/19 06:19 Sodium 143 Potassium 3.2 L Chloride 110 H Carbon Dioxide 23.0 Anion Gap 10.0 BUN 7 Creatinine 0.8 Estimated GFR > 60 POC Glucose Random Glucose 97 Calcium 8.3 L CK-MB (CK-2) Troponin T Amylase Lipase DVT/PE Assessment - Risk for VTE Risk for VTE: No Risk Level: Very Low Risk Assessment Date: 01/18/19 Risk Assessment Time: 12:09 VTE Orders Placed or Will Be Placed: No VTE Reason for No Prophylaxis: Not Indicated (ruling out AAA prior to initiating DVT prophylaxis) - Active Medicaitons Current Medications: Current Medications Hydrocodone Bitart/Acetaminophen (Jackson 7.5mg/325mg) 1 each PO TID [facility] Last Admin: 01/19/19 05:10 Dose: 1 each Documented by: Buspirone HCl (Buspar) 20 mg PO TID [facility] Last Admin: 01/18/19 21:59 Dose: 20 mg Documented by: Chlordiazepoxide HCl (Librium) 25 mg PO TID [facility] Last Admin: 01/18/19 21:59 Dose: 25 mg Documented by: Dicyclomine HCl (Bentyl) 20 mg PO TID [facility] Last Admin: 01/18/19 21:59 Dose: 20 mg Documented by: Diphenhydramine HCl (Benadryl) 25 mg IVP NOW ONE Stop: 01/19/19 10:04 Sodium Chloride () 1,000 mls @ 200 mls/hr IV .Q5H PRN PRN Reason: LARGE VOLUME IV Last Infusion: 01/18/19 23:13 Dose: Infused Documented by: Ketorolac Tromethamine (Toradol) 30 mg IVP NOW ONE Stop: 01/19/19 10:04 Lamotrigine (Lamictal) 200 mg PO QHS [facility] Last Admin: 01/18/19 21:59 Dose: 200 mg Documented by: Lorazepam (Ativan) 1 mg IV Q4HR PRN PRN Reason: ANXIETY Last Admin: 01/19/19 05:15 Dose: 1 mg Documented by: Metoclopramide HCl (Reglan) 10 mg IVP NOW ONE Stop: 01/19/19 10:04 Nicotine (Nicotine 21mg) 1 patch TD Q24H [facility] Last Admin: 01/18/19 23:01 Dose: Not Given Documented by: Nitroglycerin (Nitrostat 0.4mg) 0.4 mg SL Q5MIN PRN PRN Reason: CHEST PAIN Ondansetron HCl (Zofran Odt) 4 mg SL DAILY [facility] Last Admin: 01/18/19 10:09 Dose: 4 mg Documented by: Pantoprazole Sodium (Protonix) 40 mg PO DAILY [facility] Last Admin: 01/18/19 10:09 Dose: 40 mg Documented by: Sucralfate (Carafate) 1 g PO QID [facility] Last Admin: 01/18/19 21:59 Dose: 1 g Documented by: AMI Plan - Labs Result Diagrams: 01/17/19 18:10 01/19/19 06:19
[2019-01-19] MEDS: PANTOPRAZOLE SODIUM 40 MG TABLET PO SCH (10:13)
[2019-01-19] MEDS: DICYCLOMINE HCL 10 MG CAPSULE PO SCH ×3 (10:13→22:11)
[2019-01-19] MEDS: SUCRALFATE 1 G/10 ML UD PO SCH ×4 (10:14→22:10)
[2019-01-19] MEDS: BUSPIRONE 5 MG TABLET PO SCH ×3 (10:14→22:10)
[2019-01-19] MEDS: CHLORDIAZEPOXIDE 25 MG CAPSULE PO SCH ×3 (10:15→22:13)
[2019-01-19] MEDS: ONDANSETRON 4 MG ODT TABLET SL SCH (10:15)
[2019-01-19] MEDS: BREO (FLUTICASONE/VILANTEROL) 100MCG/25MCG INHALER INH SCH (10:38)
[2019-01-19] MEDS: POTASSIUM CHLORIDE 20 MEQ TABLET PO SCH (10:39)
[2019-01-19] MEDS: 0.9 % SODIUM CHLORIDE 1000ML 1,000 ML IV PRN (18:59)
[2019-01-19] MEDS: LAMOTRIGINE 100 MG TABLET PO SCH (22:11)
[2019-01-19] MEDS: NICOTINE 21 MG/24 HOUR PATCH TD SCH (22:18)
[2019-01-19] MEDS ORDERED: DIPHENHYDRAMINE HCL 50 MG/ML VIAL IVP PRN (22:33)
[2019-01-19] MEDS ORDERED: DIPHENHYDRAMINE HCL 25 MG CAPSULE PO PRN (22:33)
[2019-01-20] MEDS: 0.9 % SODIUM CHLORIDE 1000ML 1,000 ML IV PRN ×2 (02:35→10:48)
[2019-01-20] MEDS: LORAZEPAM 2 MG/ML VIAL IV PRN ×3 (05:07→15:38)
[2019-01-20] MEDS ORDERED: ACETAMINOPHEN 1,000 MG/100 ML BTL IVPB ONE (05:29)
[2019-01-20 07:37] LABS: ALB/GLOB RATIO 1.6 (1.1-1.8); ALBUMIN 3.6 g/dL (4.0-5.0); ALKALINE PHOSPHATASE 63 U/L (40-129); ALT/SGPT 22 U/L (<41); AST/SGOT 20 U/L (10.0-50.0); BLOOD UREA NITROGEN 8 mg/dL (6-20); CREATININE 0.8 mg/dL (0.7-1.2); EST GLOMERULAR FILTRATION RATE > 60 mL/min; GLUCOSE,RANDOM 95 mg/dL (74-109); TOTAL PROTEIN 5.9 g/dL (6.6-8.7)
[2019-01-20] MEDS: BREO (FLUTICASONE/VILANTEROL) 100MCG/25MCG INHALER INH SCH (09:40)
[2019-01-20] MEDS: HYDROCODONE/APAP 7.5/325MG TABLET PO SCH ×2 (13:41→15:06)
[2019-01-20] MEDS: DICYCLOMINE HCL 10 MG CAPSULE PO SCH ×2 (13:42→15:05)
[2019-01-20] MEDS: BUSPIRONE 5 MG TABLET PO SCH ×2 (13:42→15:06)
[2019-01-20] MEDS: POTASSIUM CHLORIDE 20 MEQ TABLET PO SCH (13:44)
[2019-01-20] MEDS: SUCRALFATE 1 G/10 ML UD PO SCH ×2 (13:44→13:48)
[2019-01-20] MEDS: CHLORDIAZEPOXIDE 25 MG CAPSULE PO SCH ×2 (13:44→15:05)
[2019-01-20] MEDS: PANTOPRAZOLE SODIUM 40 MG TABLET PO SCH (13:45)
[2019-01-20] MEDS: ONDANSETRON 4 MG ODT TABLET SL SCH (13:48)
--- NOTE | 2019-01-20 15:10 | Discharge Summary ---
Providers Discharge Summary Date: 01/20/19 Date of admission: 01/17/19 21:50 Expected Date of Discharge: 01/20/19 Attending physician: LAMIN KATZ Primary care physician: JONES FLOWERS D.O. Consults: Consult Orders 01/19/19 09:52 Consult NOW Consulting Provider: ALESIA GARAY Physician Instructions: hx ETOH, ibuprofen use, vomiting every morning Reason For Exam: r/o esophageal/stomach ulcer Physical Exam - Vital Signs Vital Signs: Vital Signs - Last 24 Hrs Temp Pulse Pulse Resp BP BP Pulse Ox 01/20/19 12:00 97.4 F L 72 18 163/104 97 01/20/19 09:43 88 18 98 01/20/19 09:00 72 18 01/20/19 08:00 98.0 F 78 16 161/101 97 01/20/19 05:00 98.8 F 87 18 147/89 99 01/19/19 21:00 99.1 F 91 H 18 134/90 100 01/19/19 17:00 99.7 F H 79 18 153/98 95 - General General Appearance: Alert, Oriented x3, Cooperative, No acute distress Limitations: No limitations - Head Head exam: Normal inspection - Eye Eye exam: Normal appearance, PERRL, EOMI Pupils: Normal accommodation - ENT ENT exam: Normal exam, Mucous membranes moist, Normal external ear exam, Normal orophraynx Ear exam: Normal external inspection. negative: External canal tenderness Nasal Exam: Normal inspection. negative: Discharge, Sinus tenderness Mouth exam: Normal external inspection, Tongue normal Teeth exam: Normal inspection. negative: Dental caries Throat exam: Normal inspection. negative: Tonsillar erythema, Tonsillar exudate - Neck Neck exam: Normal inspection, Full ROM. negative: Tenderness - Respiratory Respiratory exam: Decreased breath sounds (prior to coughing and deep breathing) - Cardiovascular Cardiovascular Exam: Regular rate, Normal rhythm, Normal heart sounds Peripheral Pulses: 2+: Radial (R), Radial (L) - GI/Abdominal GI/Abdominal exam: Soft, Normal bowel sounds, Other (upper and mid left quadrant referred heart sounds). negative: Tenderness - Rectal Rectal exam: Deferred - exam: Deferred - Extremities Extremities exam: Normal inspection, Full ROM, Normal capillary refill. negative: Tenderness - Back Back exam: Reports: Normal inspection, Full ROM. Denies: Muscle spasm, Rash noted, Tenderness - Neurological Neurological exam: Alert, CN II-XII intact, Normal gait, Oriented X3 - Psychiatric Psychiatric exam: Normal affect, Normal mood - Skin Skin exam: Dry, Intact, Normal color, Warm Hospitalization - Hospitalization Admission Diagnosis: hypokalemia, elev cpk, chest pain, alcohol - Problem List/Discharge Diagnosis (1) Chest pain Current Visit: Yes Status: Acute Discharge Diagnosis: Chest pain type: unspecified Qualified Code(s): R07.9 - Chest pain, unspecified Base Code: R07.9 - CHEST PAIN, UNSPECIFIED Narrative Support Text: Sternal chest pain, constant Comment: 01/20/19: -EGD normal -Chest CTA neg -likely secondary to anxiety or costochrondritis (2) Alcohol abuse Current Visit: Yes Status: Acute Base Code: F10.10 - ALCOHOL ABUSE, UNCOMPLICATED Comment: 01/20/19: -will d/c home today and continue librium 25mg tid until f/u with PCP (3) Hypokalemia Current Visit: Yes Status: Acute Base Code: E87.6 - HYPOKALEMIA Comment: 01/20/19: -In the ED K was 2.8, current K is 3.4 -Continue 20mEq KCL daily (4) Elevated CPK Current Visit: Yes Status: Acute Base Code: R74.8 - ABNORMAL LEVELS OF OTHER SERUM ENZYMES Comment: 01/20/19: -Resolved (5) Unintentional weight loss Current Visit: Yes Status: Acute Base Code: R63.4 - ABNORMAL WEIGHT LOSS Comment: 01/20/19: -Pt reports 80 lbs weight loss, 15 lbs were within the past 3 months and the only lifestyle changes including switching from drinking beer to liquor and eliminating soda. (6) COPD (chronic obstructive pulmonary disease) Current Visit: Yes Status: Acute Base Code: J44.9 - CHRONIC OBSTRUCTIVE PULMONARY DISEASE, UNSPECIFIED Comment: 01/20/19: -Daily smoker, 3ppd -c/o coughing up mucous every morning until vomiting -Continue Breo daily -Encouraged coughing and deep breathing once every 10 minutes (7) Liver mass, left lobe Current Visit: Yes Status: Acute Base Code: R16.0 - HEPATOMEGALY, NOT ELSEWHERE CLASSIFIED Comment: 01/20/19: -2.4 x 3cm mass identified in left lobe of liver on abd US and CT, recommended MRI -Plan for further workup outpatient with PCP (social work contacting PCP to start order for MRI and referral) (8) At low risk for deep venous thrombosis Current Visit: Yes Status: Acute Base Code: Z91.89 - OTH PERSONAL RISK FACTORS, NOT ELSEWHERE CLASSIFIED Comment: 01/20/19: -Pt screens low risk, will hold prophylaxis until r/o GI ulcer (9) Full code status Current Visit: Yes Status: Acute Base Code: Z78.9 - OTHER SPECIFIED HEALTH STATUS Comment: 01/20/19: -Pt full code. - Hospitalization Course Disposition: Home, Self-Care Hospital Course: 38 year-old male presenting to the emergency department with edilma for x 2wks and has had sharp sternal cp that radiates around to his back x 3 days. Pt reports having a nonproductive cough throughout the day, with sputum production in the am only. pt smokes 3pks/ day. Pt states that he has seen GI in the past for lower bilateral abd pain and had a negative EGD 1 year ago. Pt reports weight loss over the past year of 80 lbs with no change in diet aside from switching from drinking beer to liquor and not drinking pop. PMH includes asthma, GERD, Anxiety, Depression, recent bereavement of father, chronic neck pain, including reports of DJD and bulging disc in c2. Taking Epps for chronic pain. In the ED: Vitals were BP of 180/111, HR 96, SpO2 100, RR 24, Temp 98.2. Recheck BP was 157/104. D. dimer <0.19, K 2.8, mag 1.6, anion gap 17, CPK 939, Trop negative, BNP 102.4, amylase 32, lipase 25. Pt states he has not had any unusual physical activity to elevate CPK. UA unremarkable aside from trace ketones. Chest XRAY and EKG WNL. Pt was admitted for alcohol withdrawal, Chest pain, and hypokalemia. 01/18/19: Vitals unremarkable aside from BP being 151/97. K increased to 3.4, Anion gap decreased to 9.0, CPK decreased to 489 with hydration, Troponin remains negat marisabel. Pt still reports sharp sternal chest pain that radiated around and through his back, with no relief from norco. Due to physical exam findings and patient history of alcoholism and smoking history, will order abdominal ultrasound to rule out gall bladder disease and AAA. Continue librium and CIWA scale per protocol. 01/19/19: Abdominal US on 01/19 identified an echogenic area of liver, recommended CT w/wo contrast. CT done and consistent- 2.4 x 3cm mass (may be atypical hemangioma, vs. neoplasm)- recommended MRI for further evaluation. Will plan further eval OP with pt's PCP. Changed admission from OBS to inpatient. GI consult ordered (for 01/20) to r/o ulcer. Pt c/o of persistent sternal "stabbing" pain, hx of heavy ETOH use and ibuprofen use. Current c/o headache- ordered IV toradol 30mg, 10mg reglan, and 25mg benadryl. Will plan NPO at midnight for GI consult, poss scope. 01/20/19: EGD done this am- neg for esophageal and gastric ulcer, biopsies were obtained. Chest CTA done to r/o underlying cause of non-cardiac CP- no abnormal findings. Pain likely secondary to anxiety or costrochrondritis. Will plan to d/c home today, will continue librium until f/u with PCP. Pt to f/u tomorrow with PCP and pursue MRI to further evaluate liver mass. PCP: Dr. Dawn Procedures: Imaging and X-Rays 01/17/19 19:54 CXR [CHEST 2 VIEWS] [RAD] Stat 01/18/19 10:58 ABDOMEN, COMPLETE [US] Stat 01/18/19 15:43 ABDOMEN WWO CONTRAST [CT] Stat 01/20/19 12:17 CHEST CTA w contrast [CTA] Stat Cardiology Procedures 01/17/19 18:15 EKG NOW 01/17/19 18:48 [employer] NOW 01/17/19 22:01 EKG QDX2@0600 Abnormal Labs: Abnormal Lab Results 01/17/19 01/17/19 01/17/19 Range/Units 18:10 18:10 21:01 MCH 34.0 H (27-33) pg Potassium 2.8 L* (3.4-4.5) mmol/L Chloride (98-107) mmol/L Anion Gap 17.0 H (7-16) Calcium 10.1 H (8.6-10.0) mg/dL Creatine Kinase 939 H (39-308) U/L Total Protein (6.6-8.7) g/dL Albumin (4.0-5.0) g/dL Urine Ketones Trace H (NEGATIVE) 01/18/19 01/19/19 01/20/19 Range/Units 03:58 06:19 06:00 MCH (27-33) pg Potassium 3.2 L (3.4-4.5) mmol/L Chloride 109 H 110 H 112 H (98-107) mmol/L Anion Gap (7-16) Calcium 8.3 L 8.5 L (8.6-10.0) mg/dL Creatine Kinase 489 H (39-308) U/L Total Protein 5.9 L (6.6-8.7) g/dL Albumin 3.6 L (4.0-5.0) g/dL Urine Ketones (NEGATIVE) Condition at Discharge: (2) Stable VTE Discharge VTE Reason For No Overlap Therapy: Not Indicated Discharge Medications - Discharge Medications Prescriptions: Fluticasone/Vilanterol 100/25 [Breo Ellipta 100-25 Mcg INH] 1 puff INH DAILY #1 inhaler Sucralfate [Carafate] 1 g PO QID #28 udc Potassium Chloride [Klor-Con] 20 meq PO DAILY #30 tablet.sa Chlordiazepoxide HCl [Librium] 25 mg PO TID #15 capsule Home Medications: Ambulatory Orders Dicyclomine HCl 20 mg PO TID cap 01/25/18 [Last Taken 01/17/19] Ibuprofen 200 mg PO Q6H PRN cap 01/25/18 [Last Taken 01/17/19] Pantoprazole Sodium [Protonix] 40 mg PO DAILY tab 01/25/18 [Last Taken 01/17/19] Hydrocodone/Acetaminophen [Hydrocodone/Acetaminophen 7.5mg/325mg] 7.5 mg PO Q6H PRN 02/25/18 [Last Taken Unknown] Zofran 4 mg PO DAILY tab 02/25/18 [Last Taken 01/17/19] Buspirone HCl [Buspar] 20 mg PO TID 01/17/19 [Last Taken 01/17/19] Lamotrigine [Lamictal] 200 mg PO QHS 01/17/19 [Last Taken 01/17/19] Chlordiazepoxide HCl [Librium] 25 mg PO TID #15 capsule 01/20/19 [Last Taken Unknown] Fluticasone/Vilanterol 100/25 [Breo Ellipta 100-25 Mcg INH] 1 puff INH DAILY #1 inhaler 01/20/19 [Last Taken Unknown] Potassium Chloride [Klor-Con] 20 meq PO DAILY #30 tablet.sa 01/20/19 [Last Taken Unknown] Sucralfate [Carafate] 1 g PO QID #28 udc 01/20/19 [Last Taken Unknown] Discharge Plan - Discharge Instructions Activity at Discharge: Increase Activity as Tolerated Diet at Discharge: Regular Diet Additional Instructions: Contact [facility] to be connected with Substance Abuse treatment [phone] Flowers on Sunday 01/21 as previously scheduled Return to the ED if symptoms worsen Quality Measures - Quality Measures Quality Measures: Documentation of Current Medications in Medical Record, Screening for High Blood Pressure and F/U Documented - Current Medications Quality Measure: Measure #130: Documentation of Current Medications Documentation of Current Medications: <Current Medications Documented/Reviewed> [G8427] - Blood Pressure Screening Quality Measure: Screening for High Blood Pressure and Follow-Up Documented Does Patient Have Any of the Following: No Blood Pressure Classification: Hypertensive Reading Systolic Measurement: 154 Diastolic Measurement: 105 Screening for High Blood Pressure: < Pre-Hypertensive BP, F/U Documented > [G8950] Pre-Hypertensive Follow-up Interventions: Referral to alternative/primary care provider. - Elder Abuse Suspicion Index EASI Reference Information: Annmarie MOLINA, Austin C, Homero D, Larry Vega.Development and validation of a tool to assist physicians identification of elder abuse: The Elder Abuse Suspicion Index (EASI ). Journal of Elder Abuse and Neglect, 2008; 20 (3): 276-300.
--- NOTE | 2019-01-21 07:22 | CT ANGIOGRAM REPORT ---
EXAM: CT ANGIOGRAM OF THE CHEST WITH POST PROCESSING HISTORY: NONCARDIAC CHEST PAIN. COUGH. TECHNIQUE: Routine CT angiogram of the chest was performed utilizing a pulmonary embolus protocol with 90 ml of Omnipaque 350 utilized. Coronal and sagittal maximum intensity projection reformatted images are generated on an independent workstation and reviewed. Comparison: Two view chest radiographic examination dated 01/17/19. FINDINGS: Opacification of the pulmonary arteries is satisfactory for interpretation. No luminal filling defect is noted in the outflow tract, main arteries, lobar arteries, or proximal segmental arteries to suggest acute pulmonary embolic disease. The heart is not enlarged. There is no evidence of right heart strain. The thoracic aorta is normal in caliber. Evaluation of the thoracic aorta for dissection is limited by suboptimal opacification. There is minor residual thymic tissue. No mediastinal nor hilar mass/lymphadenopathy. The central airways are clear. There is minor dependent atelectasis within each lung primarily in the bases, though also within the left upper lobe. No pleural or pericardial effusion. No pneumothorax. The adrenal glands are not enlarged. No lytic or blastic bone lesion. There are mild degenerative end plate changes scattered throughout the thoracic spine. Minor levoconvex curvature of the upper thoracic spine. IMPRESSION: 1. NO CTA EVIDENCE OF ACUTE PULMONARY EMBOLIC DISEASE. 2. MILD DEPENDENT ATELECTASIS IN EACH LUNG. NO LUNG CONSOLIDATION, PLEURAL EFFUSION, OR PNEUMOTHORAX. 3. EVALUATION OF THE THORACIC AORTA FOR DISSECTION IS SUBOPTIMAL DUE TO LACK OF SATISFACTORY OPACIFICATION. JOB NUMBER: [id number] MTDD
--- NOTE | 2019-01-21 08:00 | Medical Records Consult ---
DATE OF CONSULTATION: 01/20/2019 REASON FOR CONSULTATION: Abdominal pain and chest pain. HISTORY OF PRESENT ILLNESS: The patient is a 38-year-old patient who has been having shortness of breath, sharp chest pain, abdominal pain for the past 2 weeks with worsening over the last several days. He complains of a nonproductive cough but is having shortness of breath with and without exertion. He smokes up to 3 packs per day, drinks excessive amounts of alcohol as well. He denies any fever or chills per se. denies any melena or hematochezia. He does have nausea and vomiting which is apparently a chronic issue for which he takes Zofran and he also takes a PPI for GERD symptoms. He also apparently has been using large amounts of ibuprofen recently. He had a CT of the abdomen which revealed no obvious upper GI pathology but did reveal a liver irregularity of unclear significance, perhaps an atypical hemangioma. However, delayed scans were not performed, and further followup with an MRI was suggested. He currently has no nausea or vomiting but is quite anxious and wants to smoke a cigarette. PAST MEDICAL HISTORY: Apparent anxiety disorder, GERD. PAST SURGICAL HISTORY: Noncontributory. SOCIAL HISTORY: He is a heavy alcohol user and tobacco user. Denies illicit drugs. FAMILY HISTORY: Breast cancer in mother. There is a history of bladder cancer as well in a grandmother. REVIEW OF SYSTEMS: Noted per the H&P dated 01/17/2019. It was performed by Ginette Miranda in the emergency department. ALLERGIES: AMOXICILLIN, KEFLEX, CLARITHROMYCIN, BACTRIM. HOME MEDICATIONS: 1. BuSpar. 2. Lamictal. PHYSICAL EXAMINATION: VITAL SIGNS: Temperature 99.1, pulse 91, blood pressure 134/90, respirations 18, room air saturation 100%. GENERAL: He is awake, alert, oriented x3. Nontoxic in appearance. Appears to be in minimal distress. He appears extremely anxious but otherwise nontoxic, well hydrated, well nourished. HEENT: Head is atraumatic, normocephalic. No temporal muscle wasting was noted. Extraocular muscles are intact. Sclerae are anicteric. No conjunctival injection noted. NECK: Supple. Trachea midline. No palpable thyromegaly. No carotid bruits noted. HEART: Regular rate and rhythm with mildly distant heart sounds. LUNGS: Slightly diminished breath sounds but no wheezes, rales, or rhonchi. Normal to percussion. ABDOMEN: Soft. There is mild epigastric and right upper quadrant tenderness. There is no guarding, rebound, or rigidity. No palpable hepatosplenomegaly. Positive bowel sounds noted. EXTREMITIES: No clubbing, cyanosis, or edema. RADIOGRAPHIC DATA: CT of the abdomen is aforementioned. LABORATORY DATA: White count 8.5, hemoglobin 15.9, hematocrit 45.0, platelets 315. Potassium 3.4 and now 2.8, sodium 141, chloride 102, CO2 22, BUN 19, creatinine 0.9, calcium 10.1, magnesium 1.6. Liver chemistries are normal. Creatinine kinase was 939. MB was 6.2. Relatively index of 0.66. Troponin was less than 0.10. Total protein 7.4, albumin 4.7. UA with trace ketones. Alcohol level was undetectable. IMPRESSION: 1. Chest and abdominal pain of unclear significance. Perhaps there is a viral syndrome versus reflux versus peptic ulcer disease. 2. Tobacco use and abuse. 3. Alcohol use. 4. Anxiety disorder. RECOMMENDATIONS: The patient clearly needs to discontinue use of tobacco. He should reduce his alcohol significantly. I would also recommend an MRI be performed to further evaluate the liver abnormality to discern if this is an atypical hemangioma. He should avoid aspirin and nonsteroidal products. Will proceed with an upper endoscopy to assess his upper GI tract. If that is unremarkable and does not explain any of his symptoms, perhaps a CT of the chest would be helpful. As always, thank you for allowing me to participate in the healthcare of your patient. CC: PATI Salazar
--- NOTE | 2019-01-21 08:00 | Operative Note ---
OPERATION: ESOPHAGOGASTRODUODENOSCOPY with biopsy. PREOPERATIVE DIAGNOSIS: Nausea, vomiting, upper abdominal pain, and chest pain. POSTOPERATIVE DIAGNOSIS: Minimally irregular GE junction. Otherwise normal upper endoscopy. ESTIMATED BLOOD LOSS: Minimum. SPECIMENS: GE junction. COMPLICATIONS: None apparent. PROCEDURE: After informed consent was obtained from the patient, he was placed in the left lateral decubitus position in the endoscopy suite, sedated and monitored by the department of anesthesia. A well-lubricated [id number] gastroscope was placed in the posterior oropharynx under direct visualization and passed to the proximal esophagus. The endoscope was advanced through the proximal, mid, and distal esophagus. The GE junction was minimally irregular. The remainder of the esophagus appeared unremarkable. The gastric body, pylorus, duodenal bulb and sweep were unremarkable. J-turn views of the proximal stomach were unrevealing. The endoscope was straightened. The duodenum was again inspected and was unremarkable. The stomach was again inspected and was unremarkable. The endoscope was then retracted to the GE junction where a biopsy was obtained. No excessive bleeding was noted. The endoscope removed from the patient with no new findings noted. RECOMMENDATIONS: I suggest the patient continue on a proton pump inhibitor twice per day. Use Zofran as needed. I would also recommend a CT of the chest to further evaluate his apparent noncardiac chest pain and shortness of breath. In particular, perhaps a CTA would be helpful. Also, an outpatient MRI is strongly recommended to further characterize the liver abnormality found on recent ultrasound and CT. Lastly, the patient must stop smoking and needs to significantly reduce and minimize his alcohol use. As always, thank you for allowing me to participate in the healthcare of your patients. CC: PATI Salazar MD Dr. Michael Soos MTDD
== END 2019-01-20 16:35 | disposition home or self-care (01) | DRG 313 ==
LOC: ER 18:01 → MEDSURG 21:50 → OBSVTOIN 21:50
PROVIDERS: ADMIT Internal Medicine; ATTEND Internal Medicine
DX: R07.9 Chest pain, unspecified (principal); E87.6 Hypokalemia; F10.10 Alcohol abuse, uncomplicated; R74.8 Abnormal levels of other serum enzymes; J44.9 Chronic obstructive pulmonary disease, unspecified; R16.0 Hepatomegaly, not elsewhere classified; R63.4 Abnormal weight loss; G89.29 Other chronic pain; F17.210 Nicotine dependence, cigarettes, uncomplicated
CPT/HCPCS: 36416; 71046; 71275; 74170; 76700; 80048; 80053; 80320; 81003; 82150; 82550; 82553; 82948; 83690; 83735; 83880; 84484; 85025; 85379; 93005; 93010; 94640; 94760; 96374; 96375; 96376; 99223; 99233; 99239; 99285; J1200; J1885; J2765

== ENCOUNTER 2019-07-01 11:15 | Emergency (ER) | payer SELFPAY ==
[2019-07-01] MEDS ORDERED: FENTANYL PF 100MCG/2ML VIAL IVP ONE (11:24)
[2019-07-01] MEDS ORDERED: 0.9 % SODIUM CHLORIDE 1,000 ML BAG IV ONE (11:24)
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
[2019-07-01 11:38] LABS: ABSOLUTE NEUTROPHIL COUNT 4.04; BASO % 0.5 % (0-6); EOS % 1.6 % (0-6); GRAN % 64.5 % (47-80); HEMATOCRIT 45.2 % (42.0-52.0); HEMOGLOBIN 15.4 gm/dl (14.0-18.0); LYMPH % 23.8 % (16-45); MEAN CELL VOLUME 92.8 fl (81-97); MEAN CORPUSCULAR HEMOGLOBIN 31.6 pg (27-33); MEAN CORPUSCULAR HGB CONC 34.1 g/dl (32-36); MEAN PLATELET VOLUME 8.8 fl (7.4-10.4); MONO % 9.6 % (0-9); PLATELET COUNT 292 K/uL (130-400); RED BLOOD COUNT 4.87 M/uL (4.40-5.70); RED CELL DISTRIBUTION WIDTH 12.8 % (11.5-14.5); WHITE BLOOD COUNT W/O DIFF 6.3 K/uL (4.2-12.2)
[2019-07-01 11:49] LABS: BLOOD UREA NITROGEN 22 mg/dL (6-20); CREATININE 1.3 mg/dL (0.7-1.2); EST GLOMERULAR FILTRATION RATE > 60 mL/min; PARTIAL THROMBOPLASTIN TIME 25.2 SECONDS (24.5-39.1); PROTHROMBIN TIME (PATIENT) 10.3 SECONDS (9.5-12.1)
[2019-07-01 11:50] LABS: TOTAL PROTEIN 7.4 g/dL (6.6-8.7)
[2019-07-01 11:52] LABS: GLUCOSE,RANDOM 122 mg/dL (74-109)
[2019-07-01 11:54] LABS: ALB/GLOB RATIO 1.7 (1.1-1.8); ALBUMIN 4.7 g/dL (4.0-5.0); ALKALINE PHOSPHATASE 80 U/L (40-129); ALT/SGPT 33 U/L (<41); AST/SGOT 36 U/L (10.0-50.0)
[2019-07-01 11:58] LABS: LACTIC ACID 1.6 mmol/L (0.5-2.2)
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
[2019-07-01 12:48] LABS: ABO GROUP O; ANTIBODY SCREEN NEGATIVE (NEGATIVE); RH TYPE POSITIVE
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
[2019-07-01] MEDS ORDERED: HYDROCODONE/APAP 5/325MG TABLET PO ONE (13:38)
[2019-07-01 14:19] LABS: URINE APPEARANCE CLEAR; URINE BILIRUBIN NEGATIVE (NEGATIVE); URINE BLOOD NEGATIVE (NEGATIVE); URINE COLOR YELLOW; URINE GLUCOSE (UA) NEGATIVE (NEGATIVE); URINE KETONE NEGATIVE (NEGATIVE); URINE LEUKOCYTE ESTERASE NEGATIVE (NEGATIVE); URINE NITRITE NEGATIVE (NEGATIVE); URINE PROTEIN NEGATIVE (NEGATIVE); URINE UROBILINOGEN 0.2 E.U./dL (0.20 - 1.00)
== END 2019-07-01 15:11 | disposition home or self-care (01) ==
LOC: ER 11:15
DX: S30.0XXA Contusion of lower back and pelvis, initial encounter (principal); S20.312A Abrasion of left front wall of thorax, initial encounter; S30.811A Abrasion of abdominal wall, initial encounter; S30.1XXA Contusion of abdominal wall, initial encounter; R00.0 Tachycardia, unspecified; V47.5XXA Car driver injured in collision with fixed or stationary object in traffic accident, initial encounter; Y92.410 Unspecified street and highway as the place of occurrence of the external cause; F17.210 Nicotine dependence, cigarettes, uncomplicated
CPT/HCPCS: 70450; 71260; 72125; 74177; 80053; 80320; 81003; 83605; 84484; 85025; 85610; 85730; 86850; 86900; 86901; 96374; 99285; J7030

== ENCOUNTER 2019-10-03 12:16 | Emergency (ER) | payer MEDICAID ==
[2019-10-03] MEDS ORDERED: 0.9 % SODIUM CHLORIDE 1,000 ML BAG IV ONE ×2 (13:27→13:29)
[2019-10-03] MEDS ORDERED: PROMETHAZINE HCL 12.5 MG in 0.9 % SODIUM CHLORIDE 100ML 100 ML IVPB ONE (13:28)
[2019-10-03] MEDS ORDERED: ACETAMINOPHEN 1,000 MG/100 ML BTL IVPB ONE (13:39)
[2019-10-03 13:43] LABS: ABSOLUTE NEUTROPHIL COUNT 2.85; BASO % 0.7 % (0-6); GRAN % 52.8 % (47-80); HEMATOCRIT 49.7 % (42.0-52.0); HEMOGLOBIN 17.5 gm/dl (14.0-18.0); LYMPH % 35.4 % (16-45); MEAN CELL VOLUME 94.1 fl (81-97); MEAN CORPUSCULAR HEMOGLOBIN 33.1 pg (27-33); MEAN CORPUSCULAR HGB CONC 35.2 g/dl (32-36); MEAN PLATELET VOLUME 9.2 fl (7.4-10.4); MONO % 9.1 % (0-9); PLATELET COUNT 334 K/uL (130-400); RED BLOOD COUNT 5.28 M/uL (4.40-5.70); WHITE BLOOD COUNT W/O DIFF 5.4 K/uL (4.2-12.2)
[2019-10-03 13:52] LABS: BLOOD UREA NITROGEN 26 mg/dL (6-20); CREATININE 1.2 mg/dL (0.7-1.2); EST GLOMERULAR FILTRATION RATE > 60 mL/min; LIPASE 25 U/L (13-60); TOTAL PROTEIN 7.9 g/dL (6.6-8.7)
[2019-10-03 13:54] LABS: GLUCOSE,RANDOM 94 mg/dL (74-109)
[2019-10-03 13:57] LABS: INFLUENZA A NEGATIVE (NEGATIVE); INFLUENZA B NEGATIVE (NEGATIVE)
[2019-10-03 13:57] LABS: ALB/GLOB RATIO 1.3 (1.1-1.8); ALBUMIN 4.5 g/dL (4.0-5.0); ALKALINE PHOSPHATASE 74 U/L (40-129); ALT/SGPT 48 U/L (<41); AST/SGOT 72 U/L (10.0-50.0)
--- NOTE | 2019-10-03 14:42 | RADIOLOGY REPORT ---
EXAMINATION: Two View Chest Radiographs EXAM DATE: 10/03/2019 2:11 PM TECHNIQUE: Frontal and lateral views INDICATION: cough COMPARISON: CT chest July 01, 2019 ENCOUNTER: Not applicable FINDINGS: The heart, mediastinum, and pulmonary vasculature are normal. No lung consolidation or pleural effu sions are present. IMPRESSION: No acute cardiopulmonary process. Dictated by: Rob Cardenas MD on 10/03/2019 2:40 PM. .
--- NOTE | 2019-10-03 14:48 | Emergency Department Record ---
History of Present Illness - General Chief complaint: Flu Like Symptoms Stated complaint: COUGH/RUNNY NOSE Time Seen by Provider: 10/03/19 12:34 Source: Patient Mode of Arrival: Ambulatory Limitations: No limitations - History of Present Illness Initial comments: pt has been vomiting , nausea, diarrhea, cough and congestion for 2 days Onset/Timin -: Days(s) Severity: Moderate Severity scale (1-10): 5 Quality: Aching, Dull Consistency: Intermittent Improves with: None Worsens with: None Associated Symptoms: Nausea/vomiting - [place] Coma Scale Eye Response: (4) Open spontaneously Motor Response: (6) Obeys commands Verbal Response: (5) Oriented [place] Total: 15 - Related Data Home Medications Medication Instructions Recorded Confirmed Last Taken Ondansetron [Zofran Odt] 4 mg PO Q8H 10/03/19 10/03/19 1 Day Ago ~10/02/19 Previous Rx's Medication Instructions Recorded Hydrocodone/Acetaminophen [[place] 1 each PO Q6H #12 tablet 07/01/19 5-325 Tablet] Allergies Allergy/AdvReac Type Severity Reaction Status Date / Time amoxicillin Allergy hives Verified 10/03/19 12:27 amoxicillin trihydrate Allergy hives Verified 10/03/19 12:27 [From Augmentin] cephalexin Allergy hives Verified 10/03/19 12:27 clarithromycin [From Biaxin] Allergy HIVES Verified 10/03/19 12:27 potassium clavulanate Allergy hives Verified 10/03/19 12:27 [From Augmentin] sulfamethoxazole Allergy hives Verified 10/03/19 12:27 [From Bactrim] trimethoprim [From Bactrim] Allergy hives Verified 10/03/19 12:27 Travel/Exposure Screening - Travel/Exposure Within Last 30 Days Have you traveled within the last 30 days?: No - Travel/Exposure Within Last Year Have you traveled outside the [place] in the last year?: No - Additonal Travel/Exposure Details Have you been exposed to anyone with a communicable illness?: No - Travel Symptoms Symptom Screening: None Review of Systems Reviewed: No additional complaints except as noted below Constitutional: Reports: As per HPI. Denies: Chills, Fever, Malaise, Night sweats, Weakness, Weight change Eyes: Reports: As per HPI. Denies: Eye discharge, Eye pain, Photophobia, Vision change ENT: Reports: As per HPI, Congestion. Denies: Dental pain, Ear pain, Epistaxis, Hearing loss, Throat pain Respiratory: Reports: As per HPI, Cough. Denies: Dyspnea, Hemoptysis, Stridor, Wheezes Cardiovascular: Reports: As per HPI. Denies: Arrhythmia, Chest pain, Dyspnea on exertion, Edema, Murmurs, Orthopnea, Palpitations, Paroxysmal nocturnal dyspnea, Rheumatic Fever, Syncope Endocrine: Reports: As per HPI. Denies: Fatigue, Heat or cold intolerance, Polydipsia, Polyuria Gastrointestinal: Reports: As per HPI, Diarrhea, Nausea, Vomiting. Denies: Abdominal pain, Constipation, Hematemesis, Hematochezia, Melena Genitourinary: Reports: As per HPI. Denies: Dysuria, Frequency, Hematuria, Incontinence, Retention, Testicular pain, Testicular mass, Urgency Musculoskeletal: Reports: As per HPI. Denies: Arthralgia, Back pain, Gout, Joint swelling, Myalgia, Neck pain Skin: Reports: As per HPI. Denies: Bruising, Change in color, Change in hair/nails, Lesions, Pruritus, Rash Neurological: Reports: As per HPI. Denies: Abnormal gait, Confusion, Headache, Numbness, Paresthesias, Seizure, Tingling, Tremors, Vertigo, Weakness Psychiatric: Reports: As per HPI. Denies: Anxiety, Auditory hallucinations, Depression, Homicidal thoughts, Suicidal thoughts, Visual hallucinations Hematological/Lymphatic: Reports: As per HPI. Denies: Anemia, Blood Clots, Easy bleeding, Easy bruising, Swollen glands Past Medical History - SOCIAL HISTORY Smoking Status: Current every day smoker Alcohol Use: None Alcohol Use Comment: quit 12/2017 Drug Use: None - RESPIRATORY Hx Respiratory Disorders: Yes Hx Asthma: Yes - CARDIOVASCULAR Hx Cardio Disorders: No - NEURO Hx Neuro Disorders: No - GI Hx GI Disorders: Yes Hx Reflux: Yes Hx Liver Disease: Yes (growth) - Hx Genitourinary Disorders: Yes Hx Bladder Problem: Yes (needs to see MD bladder doesn't empty X 1 yr) - ENDOCRINE Hx Endocrine Disorders: No - MUSCULOSKELETAL Hx Musculoskeletal Disorders: No - PSYCH Hx Psych Problems: Yes Hx Depression: Yes - HEMATOLOGY/ONCOLOGY Hx Hematology/Oncology Disorders: No Family Medical History Any Significant Family History?: Yes Hx Cancer: Mother, Grandparents *Cancer Comment: MOM breast, MGM bladder Hx Diabetes: Mother Hx Heart Disease: Grandparents Physical Exam - General General Appearance: Alert, Oriented x3, Cooperative, Mild distress - Head Head exam: Normal inspection - Eye Eye exam: Normal appearance, PERRL, EOMI Pupils: Normal accommodation - ENT ENT exam: Normal exam, Mucous membranes moist, Normal external ear exam, Normal orophraynx Ear exam: Normal external inspection. negative: External canal tenderness Nasal Exam: Normal inspection. negative: Discharge, Sinus tenderness Mouth exam: Normal external inspection, Tongue normal Teeth exam: Normal inspection. negative: Dental caries Throat exam: Normal inspection. negative: Tonsillar erythema, Tonsillar exudate - Neck Neck exam: Normal inspection, Full ROM. negative: Tenderness - Respiratory Respiratory exam: Normal lung sounds bilaterally. negative: Respiratory distress - Cardiovascular Cardiovascular Exam: Normal rhythm, Normal heart sounds, Tachycardia - GI/Abdominal GI/Abdominal exam: Soft, Normal bowel sounds. negative: Tenderness - Rectal Rectal exam: Deferred - exam: Deferred - Extremities Extremities exam: Normal inspection, Full ROM, Normal capillary refill. negative: Tenderness - Back Back exam: Reports: Normal inspection, Full ROM. Denies: Muscle spasm, Rash noted, Tenderness - Neurological Neurological exam: Alert, Normal gait, Oriented X3, Reflexes normal - Psychiatric Psychiatric exam: Normal affect, Normal mood - Skin Skin exam: Dry, Intact, Normal color, Warm Course Vital Signs 10/03/19 12:20 Temperature 97.8 F Pulse Rate 122 H Respiratory 18 Rate Blood Pressure 160/119 Pulse Ox 98 - Reevaluation(s) Reevaluation #1: 10/03/19 15:29 pt feels better Medical Decision Making - Lab Data Result diagrams: 10/03/19 13:15 10/03/19 13:15 Lab Results 10/03/19 10/03/19 10/03/19 Range/Units 13:15 13:15 Unknown WBC 5.4 (4.2-12.2) K/uL RBC 5.28 (4.40-5.70) M/uL Hgb 17.5 (14.0-18.0) gm/dl Hct 49.7 (42.0-52.0) % MCV 94.1 (81-97) fl MCH 33.1 H (27-33) pg MCHC 35.2 (32-36) g/dl RDW 13.0 (11.5-14.5) % Plt Count 334 (130-400) K/uL MPV 9.2 (7.4-10.4) fl Gran % 52.8 (47-80) % Lymphocytes % 35.4 (16-45) % Monocytes % 9.1 H (0-9) % Eosinophils % 2.0 (0-6) % Basophils % 0.7 (0-6) % Absolute Neutrophils 2.85 Sodium 135 L (136-145) mmol/L Potassium 4.2 (3.4-4.5) mmol/L Chloride 98 (98-107) mmol/L Carbon Dioxide 19.0 L (22-29) mmol/L Anion Gap 18.0 H (7-16) BUN 26 H (6-20) mg/dL Creatinine 1.2 (0.7-1.2) mg/dL Estimated GFR > 60 mL/min Random Glucose 94 (74-109) mg/dL Calcium 9.7 (8.6-10.0) mg/dL Total Bilirubin 1.80 H (0.2-1.0) mg/dL AST 72 H (10.0-50.0) U/L ALT 48 H (<41) U/L Alkaline Phosphatase 74 (40-129) U/L Total Protein 7.9 (6.6-8.7) g/dL Albumin 4.5 (4.0-5.0) g/dL Globulin 3.4 (1.4-4.8) gm/dL Albumin/Globulin Ratio 1.3 (1.1-1.8) Lipase 25 (13-60) U/L Influenza Type A Ag Negative (NEGATIVE) Influenza Type B Ag Negative (NEGATIVE) Disposition Disposition: Discharge Clinical Impression: Dehydration, Vomiting and diarrhea, Elevated liver enzymes Disposition: Home, Self-Care Condition: (1) Good Instructions: Acute Nausea and Vomiting (ED), Acute Diarrhea (ED), Dehydration (ED) Additional Instructions: follow up with family doctor. return sooner if worse. push fluids.. have liver enzymes rechecked Forms: Patient Portal Access, Return to Work/School Quality - Quality Measures Quality Measures: N/A - Blood Pressure Screening Does Patient Have Any of the Following: No Blood Pressure Classification: Hypertensive Reading Systolic Measurement: 160 Diastolic Measurement: 119 Screening for High Blood Pressure: < First Hypertensive BP, F/U Documented > [G8950] First Hypertensive Follow-up Interventions: Follow-up with rescreen GT 1 day and LT 4 weeks.
[2019-10-03 14:52] LABS: URINE APPEARANCE CLEAR; URINE BILIRUBIN MODERATE (NEGATIVE); URINE BLOOD TRACE-I (NEGATIVE); URINE COLOR YELLOW; URINE GLUCOSE (UA) NEGATIVE (NEGATIVE); URINE KETONE 40 mg/dL (NEGATIVE); URINE LEUKOCYTE ESTERASE NEGATIVE (NEGATIVE); URINE NITRITE NEGATIVE (NEGATIVE); URINE PROTEIN TRACE (NEGATIVE); URINE UROBILINOGEN 0.2 E.U./dL (0.20 - 1.00)
[2019-10-03 15:05] LABS: URINE EPITHELIAL CELLS 0 - 2 (FEW); URINE RBC 0 - 2 (NONE SEEN); URINE WBC 0 - 2 (0-2/hpf)
[2019-10-03 15:06] LABS: URINE HYALINE CAST FEW /lpf; URINE MUCUS HEAVY
[2019-10-03] MEDS ORDERED: ONDANSETRON HCL IV 4 MG/2 ML VIAL IVP ONE (15:27)
== END 2019-10-03 16:13 | disposition home or self-care (01) ==
LOC: ER 12:16
DX: E86.0 Dehydration (principal); R11.2 Nausea with vomiting, unspecified; R19.7 Diarrhea, unspecified; R94.5 Abnormal results of liver function studies; R05 Cough; F17.210 Nicotine dependence, cigarettes, uncomplicated
CPT/HCPCS: 71046; 80053; 81001; 83690; 85025; 87400; 96361; 96365; 96366; 96375; 99284; J2405; J2550; J7030